=== PATIENT | female | born 1960 | race Caucasian/White ===

== ENCOUNTER → 2024-09-10 12:53 | Outpatient (REF) | payer BC, SELFPAY | LOC: HWRCS 12:53 | PROVIDERS: ATTENDING PHYSICIAN Internal Medicine Interventional Cardiology; FAMILY PHYSICIAN Family Medicine | DX: I25.10 Atherosclerotic heart disease of native coronary artery without angina pectoris (principal) | CPT/HCPCS: 93306 ==